=== PATIENT | female | born 1980 | race Caucasian/White ===

== ENCOUNTER 2024-05-08 15:19 | Emergency (ER) | payer OTHER ==
[~2024-05-08] VITALS: Ht 172.7 cm; Wt 111.0 kg
[2024-05-08 15:23] VITALS: BP 142/91; PULSE 79; O2SAT 99
[2024-05-08 17:13] VITALS: RESP 16
[2024-05-08] MEDS: ketorolac trometh 30MG/ML vial 30 MG/ML VIAL IM ONE (17:13)
[2024-05-08] MEDS: ketorolac trometh 15mg/ml vial 15 MG/ML ML IM ONE (17:13)
== END 2024-05-08 17:49 | disposition home or self-care (01) ==
LOC: ER 15:20
DX: S40.212A Abrasion of left shoulder, initial encounter (principal); Z88.6 Allergy status to analgesic agent; Z88.5 Allergy status to narcotic agent; Y08.89XA Assault by other specified means, initial encounter; Y93.89 Activity, other specified; Y92.89 Other specified places as the place of occurrence of the external cause; Y99.8 Other external cause status
CPT/HCPCS: 96372; 99283; J1885